=== PATIENT | female | born 1980 | race African-American/Black ===

== ENCOUNTER 2020-09-08 22:51 | Emergency (ER) | payer OTHER ==
[2020-09-09 00:18] LABS: BASOPHIL 0.5 % (0-2); HCT 32.6 % (37.0-47.0); HGB 10.6 g/dl (12.5-16.0); LYMPHOCYTE 31.6 % (15-48); MCH 26.8 pg (25.0-31.0); MCHC 32.5 g/dL (32.0-36.0); MCV 82.5 fL (78.0-100.0); MONOCYTE 7.6 % (0-12); MPV 9.2 fL (6.0-9.5); NEUTROPHIL 56.1 % (41-80); NRBC 0; PLT 226 K/uL (150-400); RBC 3.95 M/uL (4.20-5.40); RDW 12.9 % (11.5-14.0); WBC 6.4 K/uL (4.0-10.5)
[2020-09-09 00:22] LABS: AMPHETAMINES NEGATIVE (NEGATIVE); BARBITURATES NEGATIVE (NEGATIVE); ECSTASY (MDMA) NEGATIVE (NEGATIVE); MARIJUANA (THC) NEGATIVE (NEGATIVE); METHADONE NEGATIVE (NEGATIVE); OPIATES NEGATIVE (NEGATIVE); OXYCODONE NEGATIVE (NEGATIVE)
[2020-09-09 00:41] LABS: PRO-BNP 50 pg/mL (<125)
[2020-09-09 00:44] LABS: ALBUMIN 3.3 g/dL (3.4-5.0); BILIRUBIN - TOTAL 0.2 mg/dL (0.2-1.0); BUN/CREAT RATIO (CALC) 10.9 RATIO; C-REACTIVE PROTEIN 0.5 mg/dL (<=0.90); CREATININE 1.01 mg/dL (0.51-0.95); FT4 (FREE T4) 1.2 ng/dL (0.76-1.46); GLOBULIN (CALCULATION) 3.6 g/dL; POTASSIUM 3.6 mmol/L (3.5-5.1); TOTAL PROTEIN 6.9 g/dL (6.4-8.2)
== END 2020-09-09 01:45 | disposition home or self-care (01) ==
LOC: FER 22:51
PROVIDERS: Emergency Medicine Emergency Medical Services
DX: R00.2 Palpitations (principal)
CPT/HCPCS: 36415; 71045; 80053; 80305; 83880; 84439; 84443; 84484; 85025; 85379; 86140; 93005; J7040